=== PATIENT | female | born 1970 | race Asian ===

== ENCOUNTER 2023-06-11 09:22 | Emergency (ER) | payer BC, OTHER ==
[~2023-06-11] VITALS: Ht 157.5 cm; Wt 68.9 kg
[~2023-06-11 09:22] MED LIST: CHOL20004 PO
[2023-06-11] MEDS ORDERED: CIPR500T5 PO (09:53)
[2023-06-11 10:23] LABS: BASOPHILS % (AUTO) 0.2 % (0.0-2.0); EOSINOPHILS % (AUTO) 0.1 % (0.0-6.0); HEMATOCRIT 43 % (33-45); HEMOGLOBIN 14.3 g/dL (11.5-14.8); LYMPHOCYTES # (AUTO) 0.9 K/uL (0.8-4.8); LYMPHOCYTES % (AUTO) 15.5 % (20.0-44.0); MEAN CORPUSCULAR HEMOGLOBIN 28 PG (26.0-33.0); MEAN CORPUSCULAR HGB CONC 33 g/dl (31.0-36.0); MEAN CORPUSCULAR VOLUME 84 fL (82-100); MONOCYTES # (AUTO) 0.5 K/uL (0.1-1.30); MONOCYTES % (AUTO) 8.8 % (2.0-12.0); NEUTROPHILS # (AUTO) 4.3 K/uL (1.8-8.9); NEUTROPHILS % (AUTO) 75.4 % (43.0-81.0); PLATELET COUNT (AUTO) 191 K/uL (150-450); RED BLOOD CELL COUNT(AUTO) 5.15 MIL/uL (4.0-5.2); RED CELL DISTRIBUTION WIDTH 12.7 % (11.5-15.0); WHITE BLOOD COUNT (AUTO) 5.7 K/uL (4.3-11.0)
[2023-06-11 10:40] LABS: CALCIUM, SERUM 8.8 mg/dL (8.5-10.1); CREATININE 0.8 mg/dL (0.6-1.3); POTASSIUM 4.2 mmol/L (3.5-5.1)
[2023-06-11] MEDS ORDERED: ACETAMINOPHEN ES 500 MG TABLET ONE (10:44)
[2023-06-11] MEDS: ACETAMINOPHEN ES 500 MG TABLET PO ONE (10:45)
[2023-06-11 10:47] LABS: ALBUMIN 3.3 g/dL (3.4-5.0); BILIRUBIN,TOTAL 0.4 mg/dL (0.2-1.0); TOTAL PROTEIN, SERUM 7.6 g/dL (6.4-8.2)
[2023-06-11 10:53] LABS: APPEARANCE,URINE CLEAR (CLEAR); BILIRUBIN,URINE NEGATIVE (NEGATIVE); BLOOD, URINE 2+ Ery/uL (NEGATIVE); COLOR,URINE YELLOW (YELLOW); KETONES,URINE NEGATIVE (NEGATIVE); LEUKOCYTE ESTERASE ,URINE NEGATIVE (NEGATIVE); NITRITE, URINE NEGATIVE (NEGATIVE); PROTEIN,URINE NEGATIVE (NEGATIVE); UGLUCOSE NEGATIVE (NEGATIVE); UROBILINOGEN,URINE 0.2 EU/dL (0.2)
[2023-06-11 11:13] LABS: ADD URINE CULTURE NO; BACTERIA,URINE Rare /HPF (None Seen); SQUAMOUS EPITHELIAL CELL,UR Rare /HPF (None Seen); WBC,URINE 0-2 /HPF (0-3)
[2023-06-11 11:15] VITALS: BP 138/85; TEMP 98.8; O2SAT 98
== END 2023-06-11 11:16 | disposition home or self-care (01) ==
LOC: ER 09:27
DX: N39.0 Urinary tract infection, site not specified (principal); R50.9 Fever, unspecified
CPT/HCPCS: 36415; 80053-TC; 81001; 85025-TC; 87086-TC

== ENCOUNTER 2023-06-20 14:33 | Emergency (ER) | payer BC, OTHER ==
[~2023-06-20] VITALS: Ht 157.5 cm; Wt 66.2 kg
[~2023-06-20 14:33] MED LIST changes: +CIPR500T5 PO
[2023-06-20] MEDS ORDERED: GUAIFENESIN/D-METHORPHAN HB 5 ML UDC ONE (15:42)
[2023-06-20] MEDS: GUAIFENESIN/D-METHORPHAN HB 5 ML UDC PO ONE (15:43)
[2023-06-20] MEDS ORDERED: AMOX-430 PO (16:46)
[2023-06-20] MEDS ORDERED: GUAI1TBM19 PO (16:46)
[2023-06-20] MEDS ORDERED: BENZ-13 PO (16:46)
[2023-06-20 16:57] VITALS: BP 156/85; TEMP 100.6; O2SAT 100
== END 2023-06-20 16:58 | disposition home or self-care (01) ==
LOC: ER 14:36
DX: J40 Bronchitis, not specified as acute or chronic (principal); R50.9 Fever, unspecified; Z20.822 Contact with and (suspected) exposure to COVID-19
CPT/HCPCS: 71045-TC